=== PATIENT | male | born 1975 | race Two or more races ===

== ENCOUNTER 2025-01-29 04:38 | Emergency (ER) | payer MEDICAID, SELFPAY ==
[2025-01-29 04:39] VITALS: BMI 29.9
[2025-01-29 04:43] VITALS: BP 144/94; PULSE 108; RESP 18; TEMP 36.9; O2SAT 99
--- NOTE | 2025-01-29 05:02 | XR_ITS ---
Examination: Testicular sonography complete TECHNIQUE: Sood scale sonographic images testes, assessment arterial inflow venous outflow Doppler spectrum analysis color flow analysis Date and time: January 29, 2025, 0550 hours INDICATIONS: Testicular pain beginning 2 days ago FINDINGS: The right testis 4.2 cm epididymis 9 mm Arterial flow to the testicle. No testicular mass Left testis 3.6 cm epididymis 12 mm Arterial flow to the testicle. No testicular mass Minimal hydroceles IMPRESSION: No testicular torsion or testicular mass Negative for epididymitis, negative for orchitis
--- NOTE | 2025-01-29 05:02 | PD.EDRME ---
Rapid Medical Screening Exam E Arrival date/time: 01/29/25 04:38 49M with no significant PMH presents to ED with 3 days of L testicular pain and swelling after he had intercourse with his longtime partner and didn't finish. Patient denies dysuria and penile discharge. Chief Complaint: General Adult/Misc Complain Vital signs: Vital Signs Temperature 98.4 F 01/29/25 04:43 Pulse Rate 108 H 01/29/25 04:43 Respiratory Rate 18 01/29/25 04:43 Blood Pressure 144/94 H 01/29/25 04:43 Pulse Oximetry (%) 99 01/29/25 04:43 Oxygen Delivery Method Room Air 01/29/25 04:43
[2025-01-29 05:45] LABS: Collection Type, Urine Clean Catch
[2025-01-29 05:51] LABS: Bilirubin,Urine Negative (Negative); Blood,Urine 1+ (Negative); Clarity,Urine Clear (Clear/Hazy); Color,Urine Yellow (Lt Yel-Yel); Glucose, Urine Negative (Negative); Ketones,Urine Negative (Negative); Leukocyte Esterase,Urine Positive (Negative); Nitrite,Urine Negative (Negative); PH,Urine 6.0 (5.0-7.0); Protein,Urine Trace (Neg - Trace); RBC,Urine 21 /hpf (0-3); Specific Gravity,Urine 1.028 (1.001-1.035); Squamous Epithelial Cell,Urine 1 /hpf (0-5); Urobilinogen,Urine 2.0 mg/dL (0.0-1.0); WBC,Urine 107 /hpf (0-5)
[2025-01-29 06:37] LABS: Culture Indicated,Urine Yes
--- NOTE | 2025-01-29 07:03 | PD.EDADULT ---
ED General RME/HPI General Chief complaint: General Adult/Misc Complain Stated complaint: LEFT GROIN AREA PAIN Time Seen by Provider: 01/29/25 06:22 Arrival date/time: 01/29/25 04:38 49M with no significant PMH presents to ED with 3 days of L testicular pain and swelling after he had intercourse with his longtime partner and didn't finish. Patient denies dysuria and penile discharge. Limitations: no limitations RME / HPI RME / HPI narrative: 01/29/25 04:38 49M with no significant PMH presents to ED with 3 days of L testicular pain and swelling after he had intercourse with his longtime partner and didn't finish. Patient denies dysuria and penile discharge. Related Data Previous Rx's ?Medication ?Instructions ?Recorded ibuprofen 800 mg tablet 800 mg PO TID PRN pain #30 tabs 10/07/18 ibuprofen 800 mg tablet 800 mg PO Q8H PRN pain #10 tabs 03/30/23 cephalexin 500 mg tablet 500 mg PO QID 7 days #28 tabs 01/29/25 ibuprofen 800 mg tablet 800 mg PO TID PRN pain #30 tabs 01/29/25 Allergies Allergy/AdvReac Type Severity Reaction Status Date / Time No Known Allergies Allergy Verified 01/29/25 04:40 Review of Systems Review of Systems Systems Reviewed: All systems reviewed, normal except as documented Constitutional Constitutional: Reports system reviewed and no additional complaints, except as documented, Denies fever(s) and Denies headache(s) Eyes Eyes: Reports system reviewed and no additional complaints, except as documented and Denies blurry vision ENT Ears, Nose, Mouth, and Throat: Reports system reviewed and no additional complaints, except as documented, Denies headache(s), Denies nasal congestion and Denies nasal discharge Cardiovascular Cardiovascular: Reports system reviewed and no additional complaints, except as documented, Denies chest pain and Denies dyspnea Respiratory Respiratory: Reports system reviewed and no additional complaints, except as documented, Denies chest congestion, Denies cough and Denies dyspnea Gastrointestinal Gastrointestinal: Reports system reviewed and no additional complaints, except as documented and Denies abdominal pain Genitourinary Genitourinary: Reports system reviewed and no additional complaints, except as documented, Reports dysuria and Reports other (Testicular pain left) Integumentary/Breasts Skin/Breast: Reports system reviewed and no additional complaints, except as documented and Denies rash Neurologic Neurologic: Reports system reviewed and no additional complaints, except as documented, Reports as per HPI and Denies headache(s) Past Medical History Past Medical History CARDIAC: Negative Congestive Heart Failure RESPIRATORY: Negative Chronic Obstructive Pulmonary Disease (COPD) GENITOURINARY: Negative Renal Disease ENDOCRINE: Negative Diabetes Mellitus Type 1 or Diabetes Mellitus Type 2 Social History SMOKING STATUS: Current every day smoker ED Exam General Limitations: Present no limitations General appearance: Present alert and in no apparent distress Head Head exam: Present atraumatic, normocephalic and normal inspection Eye Eye exam: Present normal appearance, PERRL and EOMI; Absent conjunctival injection ENT ENT exam: Present normal exam, normal oropharynx and mucous membranes moist Neck Neck exam: Present normal inspection, full ROM and trachea midline Chest Chest inspection: Present normal inspection and symmetric chest wall rise Respiratory Respiratory exam: Present normal lung sounds bilaterally; Absent respiratory distress Cardiovascular Cardiovascular exam: Present regular rate, normal rhythm and normal heart sounds Abdominal Exam Abdominal exam: Present soft and normal bowel sounds; Absent distention, tenderness, guarding, rebound or rigidity Extremities Exam Extremities exam: Present normal inspection and full ROM Back Exam Back exam: Present normal inspection and full ROM Neurological Exam Neurological exam: Present alert, oriented X3 and CN II-XII intact Psychiatric Psychiatric exam: Present normal affect and normal mood Skin Skin exam: Present warm, dry, intact and normal color Course Quality Measures none Orders Category Date Time Status US testicular Stat Exams 01/29/25 05:02 Completed Urinalysis, C/S if Indicated Stat Lab 01/29/25 05:05 Completed Urine Culture Stat Lab 01/29/25 05:05 Received Vital Signs Vital signs: Vital Signs Temperature 98.4 F 01/29/25 04:43 Pulse Rate 108 H 01/29/25 04:43 Respiratory Rate 18 01/29/25 04:43 Blood Pressure 144/94 H 01/29/25 04:43 Pulse Oximetry (%) 99 01/29/25 04:43 Oxygen Delivery Method Room Air 01/29/25 04:43 O2 saturation 99% room air within normal limits Discharge Plan Plan Patient Disposition: HOME (Self Care) Discharge Disposition comment: Stable Prescriptions/Referrals Prescriptions/Med Rec: New ibuprofen 800 mg tablet 800 mg PO TID PRN (Reason: pain) Qty: 30 0RF cephalexin 500 mg tablet 500 mg PO QID 7 Days Qty: 28 0RF No Action ibuprofen 800 mg tablet 800 mg PO TID PRN (Reason: pain) Qty: 30 0RF ibuprofen 800 mg tablet 800 mg PO Q8H PRN (Reason: pain) Qty: 10 0RF Referrals: No Primary/Family,Physician [Primary Care Provider] - In 1 week Problem List Clinical Impression: Testes pain, UTI (urinary tract infection) Patient/Caregiver Discharge Instructions Education Materials: Urinary Tract Infections in Men Additional Instructions: Please follow up with your primary care doctor in the next 24-48hrs for any worsening symptoms return here immediately Please follow-up with PCP for STD panel Print Language: Syriac Stand Alone Forms: Minal Award Info., Patient Portal Info Letter PA/[employer] Supervising Physician PA/[employer] Supervising Physician: Dr. lesley KENDALL Narrative MDM hospital course: 49M with no significant PMH presents to ED with 3 days of L testicular pain and swelling after he had intercourse with his longtime partner and didn't finish. Patient denies dysuria and penile discharge. On exam patient well-appearing patient does not appear ill or toxic in no acute distress Ultrasound obtained no acute emergent findings noted Urinalysis obtained consistent with UTI Patient will be treated course of antibiotics and pain medication Explained to the patient he should have outpatient STD testing Patient discharged home in no distress to follow-up with primary care doctor in the next 24 to 48 hours and for any worsening symptoms to return to the ER immediately Clinical Information Provided by patient Medical Records Reviewed [facility] Meds/Rx Considered, not Ordered Describe details: Rx given Labs/Rad/Tests considered, not Ordered Describe details: Obtained Chronic Illness/Social Conditions Add or document further as needed: Substance abuse EKG EKG not done Lab Interpretation Labs: none Imaging Imaging interpretation: none Medication Administration(s) Given Diagnosis Differential dx and/or dx ruled out: Orchitis, epididymitis, STD, UTI Most likely dx, and/or detailed dx discussion: UTI Dispositon Disposition: Discharge Home
== END 2025-01-29 07:08 | disposition home or self-care (01) ==
PROVIDERS: Physician Assistant; Emergency Provider Emergency Medicine
DX: N39.0 Urinary tract infection, site not specified (principal); N50.812 Left testicular pain
CPT/HCPCS: 76870; 81001; 87086; 99283